=== PATIENT | male | born 1980 | race Caucasian/White ===

== ENCOUNTER 2024-04-14 15:36 | Outpatient (CLI) | payer OTHER, SELFPAY ==
--- NOTE | ~2024-04-14 | XR_ITS ---
EXAM: XR ankle LT 2V, XR foot LT 2V DATE: 04/14/2024 16:04 HISTORY: M25.579 - Pain in unspecified ankle and joints of unspeci... . COMPARISON: None available. FINDINGS: Normal mineralization. No fracture or dislocation. No lytic or blastic lesion. Joint space s are maintained. No erosion or periosteal change. Soft tissues within normal limits. IMPRESSION: Normal left ankle and left foot radiograph findings. Reviewed, dictated and finalized at location K. IMPRESSION: Normal left ankle and left foot radiograph findings.
--- NOTE | ~2024-04-14 | XR_ITS ---
EXAM: XR ankle RT 2V, XR foot RT 2V DATE: 04/14/2024 16:03 HISTORY: M25.571 - Pain in right ankle and joints of right foot . COMPARISON: None available. FINDINGS: Normal mineralization. No fracture or dislocation. No lytic or blastic lesion. Mild degene rative change at the right first interphalangeal joint. No erosion or periosteal change. Soft tissues within normal limits. IMPRESSION: No acute osseous finding in the right ankle or right foot. Reviewed, dictated and finalized at location K. IMPRESSION: No acute osseous finding in the right ankle or right foot.
--- NOTE | ~2024-04-14 | XR_ITS ---
EXAMINATION: XR chest 2V Exam Date/Time: 04/14/2024 15:50 CDT HISTORY: R06.02 - Shortness of breath Comparison: None. RESULT: Lines, tubes, and devices: None. Lungs and pleura: Clear. Cardiomediastinal silhouette: Normal. Other: No acute osseous or upper abdominal finding. IMPRESSION: No acute cardiopulmonary process. Reviewed, dictated and finalized at location K.
== END 2024-04-14 15:37 | disposition home or self-care (01) ==
LOC: ANHIMG 15:41
PROVIDERS: PCP Nurse Practitioner Family; Visit Provider Nurse Practitioner Family
DX: M25.571 Pain in right ankle and joints of right foot (principal); R06.02 Shortness of breath; M25.579 Pain in unspecified ankle and joints of unspecified foot; M79.671 Pain in right foot; M79.672 Pain in left foot
CPT/HCPCS: 71046; 73600; 73620

== ENCOUNTER 2024-05-29 09:19 | Outpatient (CLI) | payer OTHER, SELFPAY ==
--- NOTE | ~2024-05-29 | US_ITS ---
US abdomen limited INDICATION: Gallbladder polyps PROCEDURE: Realtime right upper abdominal ultrasound. COMPARISON: No prior studies for comparison. FINDINGS: The pancreas is normal without focal mass or pancreatic ductal dilation. Liver echotexture is normal without focal mass or intrahepatic biliary dilatation. There is normal directional flow i n the portal vein. There are multiple gallbladder polyps, largest measuring 11 mm. Common bile duct measures 4 mm. IMPRESSION: 1: Gallbladder polyps. Largest polyp measures approximately 11 mm. Reviewed, dictated and finalized at location B.
== END 2024-05-29 09:20 | disposition home or self-care (01) ==
PROVIDERS: PCP Nurse Practitioner Family; Visit Provider Nurse Practitioner Family
DX: K82.4 Cholesterolosis of gallbladder (principal)
CPT/HCPCS: 76705

== ENCOUNTER 2024-06-17 15:06 | Outpatient (CLI) | payer OTHER, SELFPAY ==
[2024-06-17 15:41] LABS: Alanine Aminotransferase 17 U/L (6-50); Albumin Level 4.5 g/dL (3.5-5.1); Alkaline Phosphatase 52 U/L (38-126); Amylase 80 U/L (30-110); Aspartate Amino Transferase 24 U/L (17-59); Bilirubin,Total 0.5 mg/dL (0.2-1.3); Lipase 122 U/L (23-300)
== END 2024-06-17 15:07 | disposition home or self-care (01) ==
LOC: ANHLAB 15:07
PROVIDERS: PCP Nurse Practitioner Family; Visit Provider Surgery
DX: K82.4 Cholesterolosis of gallbladder (principal)
CPT/HCPCS: 36415; 80076; 82150; 83690

== ENCOUNTER 2024-06-22 00:32 | Day surgery (SDC) | payer OTHER, SELFPAY ==
[2024-06-16 14:33] VITALS: BMI 27.1
--- NOTE | 2024-06-16 14:40 | PC.NURSE ---
Addendum entered by Shashi Rivera RN 06/17/24 13:02: No Semaglutide until after surgery. Original Note: Report to the Outpatient Waiting Room, entrance under the green pavilion located off [facility], at time _1100_ on date _[phone]_. Planned Procedure Time: _1pm_.? Time changes happen often and if your time is changed the preop area will call you the afternoon before. - You and your visitor will be asked to self-screen and do not enter if you have any COVID symptoms. Please call surgeon if you need to reschedule. - A mask is optional within the hospital at this time. Patients may have clear liquids (water, carbonated beverages, clear teas, apple juice) until 3 hours prior to surgery with a maximum of 20 ounces. - No food from midnight until time of surgery and no smoking Take only the following medications with a SIP of water on the morning of surgery: ___Bupropion and if needed Alprazolam____ DO NOT STOP ANY OF YOUR OTHER PRESCRIPTION MEDICATIONS PRIOR TO SURGERY EXCEPT THE FOLLOWING Medications to discontinue per physician __None___ Please no make-up, nail arabic, hairspray, perfume, deodorant, or body powder the day of surgery.? No jewelry (including any body piercings) or valuables the day of surgery, leave them at home.? Please take a shower or bath the night before, or the morning of, surgery with an antibacterial soap.? Wear comfortable, loose fitting clothing.? - Jewelry must be removed prior to entering the operating room.? Rings and piercings that are not removed may be cut off. - The hospital will not accept responsibility for valuables.? - Please leave all valuables, including medications, at home the day of surgery. If you are going home after surgery, a licensed driver guard must drive you home.? - NO public transportation without another adult if you receive anesthesia. - We recommend that an adult stay with you for 24 hours following discharge. - We also recommend that you do not drive, make important decision, drink alcoholic beverages, or take any drugs that were not prescribed by your health care provider for at least 24 hours after your discharge time. Follow any additional instructions given to you from your surgeon. Telephone instructions given to __Jacob_and asked if any additional questions and then verbalized understanding. Patient advised to call surgeon office or pre surgery nurse liaison [phone] if any additional questions.
[2024-06-22] VITALS (9 sets, daily range): BP systolic 126–148; BP diastolic 94–100; PULSE 79–90; RESP 14–18; TEMP 36.1–36.3; O2SAT 100
[2024-06-22] MEDS: ACETAMINOPHEN 500 MG TABLET 1000 MG PO (11:05)
[2024-06-22] MEDS: LACTATED RINGERS 1,000 ML 30 ML IV CONT ×2 (11:10→15:47)
[2024-06-22] MEDS: KETOROLAC 15 MG/ML VIAL (*BKC) IV PUSH (11:15)
--- NOTE | 2024-06-22 11:53 | SUR.PREOP ---
1145 - pt aware of delay in procedure per Lorraine Townsend PACU visual presentation manager
--- NOTE | 2024-06-22 12:41 | WPDANESEPPF ---
Anes - Initial Pre Proc Eval Procedure: Operation Date: 06/22/24 13:00 Proposed Procedures p Laparoscopic Cholecystectomy - Nilda Dempsey MD Date/Time: 06/22/24 12:41 Surgeon: Nilda Dempsey MD Pre Op Diagnosis: gall bladder polyp Patient Data Age: 44 Gender: M Height: 1.85 m Weight: 94.8 kg Last Vital Signs Temp 36.1 C L 06/22/24 10:45 Pulse 85 06/22/24 10:45 Resp 18 06/22/24 10:45 BP 126/96 H 06/22/24 10:45 Pulse Ox 100 06/22/24 10:45 O2 Del Method Room Air 06/22/24 10:45 Allergies Allergy/AdvReac Type Severity Reaction Status Date / Time propranolol Allergy Severe Other Verified 06/22/24 10:53 Home Medications Medication Instructions Recorded Confirmed Type alprazolam 1 mg tablet 1 mg PO TID PRN anxiety #90 tabs 08/22/23 06/22/24 Rx bupropion HCl 150 mg 24 hr tablet, 150 mg PO QAM #90 tabs 02/25/24 06/22/24 Rx extended release sildenafil 50 mg tablet (Viagra) 50 mg PO .3x/week PRN sexual 02/25/24 06/22/24 Rx activity #12 tabs dicyclomine 10 mg capsule 10 mg PO TID PRN abdominal pain 05/18/24 06/22/24 Rx #90 caps pantoprazole 40 mg tablet,delayed 40 mg PO QAM #90 tabs 05/19/24 06/22/24 Rx release (Protonix) rifaximin 550 mg tablet (Xifaxan) 550 mg PO TID #42 tabs 05/26/24 06/22/24 Rx semaglutide 1 mg/dose (4 mg/3 mL) 1 mg subcut WEEKLY 06/09/24 06/22/24 History subcutaneous pen injector Patient hx anesthesia problems: none Family hx anesthesia problems: none Results Review: All pre-operative results and documents have been reviewed as part of the pre-operative evaluation. [facility]LY [facility] Past Medical History Medical History Anxiety BPH (benign prostatic hyperplasia) Depression Elevated liver enzymes GERD (gastroesophageal reflux disease) Headache History of IBS Low testosterone Neuropathy Panic attack Prostatitis Sleep apnea STD exposure URI (upper respiratory infection) Viral gastroenteritis Surgical History Surgical History H/O rhinoplasty H/O vasectomy Status post cystoscopy with ureteral stent placement 10/12/2021 Family History Family History Father Alcoholism Mother Depression Grandparent Kidney malignancy Cerebrovascular accident Liver cancer Hypertension Heart disease Social History Social History Smoking packs per day: 1 Smoking cigarettes per day: 20.0 Years smoked: 15 Smoking pack-years: 15.00 Smoking status: Former smoker Smoking end date: 06/16/23 Alcohol intake: never Substance use: never Substance use type: does not use Do You Feel Safe in your Home?: Yes Lack of Transportation: No Lack of Food: Never True Current Housing: I Have Housing Concerned About Future Housing: No Difficulty Paying Gas/Electric Bills: No Difficulty Paying for Meds: No Currently Unemployed: No Education: Don't Know Difficulty w/ Childcare or Family Care: No Living arrangements: with family Spiritual care concerns: No Anes - Eval Final PreProcedure Day of Procedure 06/22/24 12:41 Patient weight: overweight Heart: regular rate and rhythm Lungs: clear to auscultation Airway: Mallampati scale class II Neurological: alert and oriented Last oral intake: >/= 8 hours ASA classification: II Emergent: no Anesthetic plan: proceed Anesthesia type and monitoring: general ETT and standard monitoring Results Review: All pre-operative results and documents have been reviewed as part of the pre-operative evaluation. Informed Consent: The patient's anesthetic plan and its attendant risks and benefits were discussed with the patient/family/POA. Questions were solicited and answers provided to the satisfaction of the patient/family/POA.
--- NOTE | 2024-06-22 13:23 | WPDHPUPDATE1 ---
History and Physical Update Update Date/Time: 06/22/24 13:23 History and Physical has been reviewed, including an updated exam of the patient. There are NO changes in the patient's condition. Risks, benefits, and alternatives have been discussed and questions answered. Patient agrees to proceed with procedure.
[2024-06-22] MEDS: BUPIVACAINE/EPINEPHRINE 0.5% 50 ML VIAL 30 ML INFILTRATE (14:50)
[2024-06-22] MEDS: ceFAZolin 2 GM/D5W 50 ML 2 GM/50 ML BAG IVPB (14:50)
--- NOTE | 2024-06-22 15:38 | W.PM.PROC2 ---
Procedure Note - Detailed Date of Procedure 06/22/24 Pre-op Diagnosis gallbladder polyps Post-op Diagnosis Same Procedure Performed Laparoscopic cholecystectomy Surgeon Nilda Dempsey MD Anesthesia General Indications 44-year-old male presenting to the office recent imaging was significant for gallbladder polyps. The patient does also endorse postprandial upper abdominal pain, bloating. Findings Moderate cholecystitis Description of Procedure The patient was taken to the operating room placed in the supine position. After adequate induction of general anesthesia, the patient was prepped and draped in normal sterile fashion. A time-out was then performed to verify the patient's identity as well as the procedure being performed. I then made a 5 mm incision in the infraumbilical region. Through this, a Veress needle was placed into the peritoneal cavity and CO2 gas was then insufflated. After adequate pneumoperitoneum was achieved, the Veress needle was removed and a 5 mm optiview trocar was placed through this incision under direct visualization. I then placed the laparoscope through this trocar site and under direct visualization placed a further 12 mm subxiphoid port as well as 2 additional 5 mm ports in the right upper abdomen. The gallbladder was then identified and was noted to be moderately inflamed and distended. I was able to place a grasper at the dome of the gallbladder and this was retracted anterior and cephalad up over the liver. A 2nd retractor was then placed at the infundibulum and retracted laterally, this allowed visualization of the triangle of Calot. I then was able to visualize the cystic duct in its entirety from its proximal insertion into the gallbladder, to its distal junction with the common hepatic/common bile duct junction. At this point, I carefully skeletonized the proximal cystic duct with the [place] dissector. I then clipped and transected the proximal cystic duct. Next I visualized the cystic artery. Again the artery was skeletonized, clipped, and transected. I then used the Bovie cautery to take down the peritoneal attachments of the gallbladder off the liver bed. This was somewhat difficult given the gallbladder was somewhat intrahepatic. Once the gallbladder specimen was completely detached, an endo-pouch was placed through the 12 mm port site. I then placed the gallbladder specimen into the Endo pouch and removed the endo-pouch from the 12 mm port site. The specimen will now be sent to pathology for further review. I then copiously irrigated the right upper quadrant. Some mild oozing was noted in the liver bed and this was controlled with the bovie cautery. Hemostasis was noted in the liver bed, the clips were noted to be in good position on both the cystic duct stump and the cystic artery stump. No other pathology was noted in the right upper quadrant. I then moved the laparoscope to the subxiphoid port. No iatrogenic injury or other pathology was noted in the lower abdomen. I then closed the 12 mm trocar site under direct visualization using the Faustino cone and 0 Vicryl suture. At this point, the abdomen was desufflated and all ports removed. All port sites were then closed with 4.O Monocryl subcuticular sutures. Dermabond was placed on each incision. The patient tolerated the procedure well, was extubated in the operating room postoperative and will be transferred to the recovery room in stable condition Estimated Blood Loss 10 Drains No Packing No Pathology Yes Complications No immediate complications Condition Stable Disposition PACU [facility] Billing Surgery - Charge Forward: Surgery Billing
[2024-06-22] MEDS: fentaNYL CITRATE INJ (*CRX) 100 MCG/2 ML VIAL 25 MCG IV PUSH ×4 (15:47→16:03)
[2024-06-22] MEDS: oxyCODONE HCL (*CRX) 5 MG TAB IR PO (17:28)
== END 2024-06-22 17:54 | disposition home or self-care (01) ==
PROVIDERS: PCP Nurse Practitioner Family; Visit Provider Surgery
PROC: 0FT44ZZ Resection of Gallbladder, Percutaneous Endoscopic Approach (ICD-10-PCS; CPT 47562; principal; 2024-06-22 13:00)
DX: K81.1 Chronic cholecystitis (principal); K21.9 Gastro-esophageal reflux disease without esophagitis; K58.9 Irritable bowel syndrome, unspecified; F41.9 Anxiety disorder, unspecified; N40.0 Benign prostatic hyperplasia without lower urinary tract symptoms; F32.A Depression, unspecified; F41.0 Panic disorder [episodic paroxysmal anxiety]; G47.30 Sleep apnea, unspecified; Z79.85 Long-term (current) use of injectable non-insulin antidiabetic drugs; Z98.890 Other specified postprocedural states; Z96.0 Presence of urogenital implants; Z87.891 Personal history of nicotine dependence; Z80.51 Family history of malignant neoplasm of kidney; Z80.0 Family history of malignant neoplasm of digestive organs; Z82.49 Family history of ischemic heart disease and other diseases of the circulatory system
CPT/HCPCS: 47562; 88304; A9270; J0690; J1100; J1885; J2250; J2405; J2704; J3010; J7120

== ENCOUNTER 2025-04-26 01:51 | Day surgery (SDC) | payer OTHER, SELFPAY ==
--- OUTSIDE RECORDS SUMMARY | 2024-07-09 04:03 | XMS_ITS | Continuity of Care Document ---
Author Organization [email or web address] Address [address] [place] [address] Phone Care Team Providers Care Ux Manager Name Role Phone Jeanette Gandhi DO Unavailable Unavailable Medications Medication Instructions Dosage Effective Dates (start - stop) Status Comments doxycycline hyclate 100 mg tablet take 1 tablet by oral route every 12 hours - Active naproxen 500 mg tablet take 1 tablet by oral route 2 times every day with food 500 MG - Active Procedures Procedure Date OFFICE [id number] Advance Directives Directive Yes / No Effective Date File Name No Information Encounters Encounter Description Practice Location Reason(s) For Visit Diagnoses Date Provider Providers Copied on Encounter [facility], [address], [place], [place], [id number], [place] tel:[phone] [facility] [place] No Information Hiram Reid. [address], [place], [id number], [place]. tel:[phone] OFFICE [id number] JOSE [facility], [address], [place], [place], [address], [place] tel:[phone] [facility] testicle pain (chief complaint) Pain in both testiclesLeft testicular pain Nohemi Raygoza. [address], [facility] [address], [place], [address], [place]. tel:[phone] Referring Provider: Colton Ignacio Dr [facility] [address], [place], [address]. tel:[phone] Family History Family Member Type Diagnosis Age At Onset No Information Payers Payer name Insurance type Covered republican ID Authoriza tion(s) No Information Social History Type Description Quantity Date Captured Comments Alcohol Use Details Unknown Caffeine Use Details Unknown Tobacco Use Status Smoking Status No Information Sex Male Sexual Orientation Straight or heterosexual Gender Identity Male Chief Complaint And Reason For Visit No Information Reason For Referral Reason For Referral No Information History Of Present Illness Encounter Date Complaint History Of Prese nt Illness testicle pain testicle pain (comments) patient presents for a second opinion on persisted testicular pain. Patient with vasectomy one year ago. The patient reports approximate 10 days after the vasectomy he was treated for a infection. He completed three rounds of antibiotics. The patient does report prior epididymitis prior to the vasectomy. He now complains of bilateral testicular pain occurring most days. He also has pain radiating down his leg. He rates the plaintiff six or 7/10. The patient's pain is been worsens June 2021. No voiding symptoms, tobacco use, family history of stone disease. The patient has been treated with NSAIDs. Previous urology records reviewed. Functional Status Date Functional Assessmen t No Information Instructions Date Instruction Additional Infor becki persistent testicula r pain bilaterally following a vasectomy. This is a well-known complication of vasectomy. Difficult to improve upon. I recommend NSAIDs when symptomatic. We discussed referral to peripheral nerve surgeon and injection therapy. I recommend referral to Dr. Andre Lang if symptoms worsen. We will give doxycycline and naproxen. Related to Pain in both testicles Assessments Type Assessment Date No Information Patient Care Teams Name Effective Dates (start - stop) Status Members No Information
[2025-04-12 15:19] VITALS: BMI 26.4
--- OUTSIDE RECORDS SUMMARY | 2025-04-26 01:54 | XMS_ITS | Clinical Summary ---
Author Organization [facility] Address [address] [place] [address] Care Team Providers Care Safety Technician Name Role Phone Bao Pierson MD Primary Care Provider [phone] Allergies Active Allergy Reactions Criticality Noted Date Comments Propranolol Other (See comments) Low 08/02/2021 alopecia Medications sildenafiL (VIAGRA) 50 mg tablet 1 Active SUMAtriptan (IMITREX) 50 mg tablet Take 1 tablet (50 mg total) by mouth 2 (two) times a day as needed 1 Active dicyclomine (BENTYL) 20 mg tablet Take 1 tablet (20 mg total) by mouth 4 (four) times a day as needed (abdominal cramping) 120 tablet 5 2 Active Xifaxan 550 mg tablet 5 Active testosterone enanthate 200 mg/mL injection Inject into the muscle as instructed every 7 days Active semaglutide (OZEMPIC) 0.25 mg or 0.5 mg (2 mg/3 mL) pen injector injection Inject under the skin every 7 days Active fluticasone propionate (FLONASE) 50 mcg/actuation nasal spray Administer 1 spray into each nostril daily 3 each 1 5 Active valACYclovir (VALTREX) 1 gram tablet Take 1 tablet (1,000 mg total) by mouth daily 30 tablet 5 Active buPROPion (WELLBUTRIN) 100 mg tablet Take 1 tablet (100 mg total) by mouth daily Active vitamin K2 40 mcg tablet Take 300 mcg by mouth Active cholecalciferol (VITAMIN D-3) 97333 unit tablet Take 1 tablet (10,000 Units total) by mouth daily Active omega 3-xdg-rwv-fish oil 1,200 (144-216) mg capsule Take 1 capsule by mouth daily Active digestive enzymes capsule Take by mouth One cap TID Active Active Problems Problem Noted Date Diagnosed Date Anxiety 08/28/2024 Assessment & Plan (08/28/2024 10:03 AM CLINICAL AUDIOLOGIST): Patient with history of chronic anxiety. He is on Wellbutrin. He did not notice improvement with the medication. He is on Wellbutrin for about 2 years. Will stop Wellbutrin and start him on Lexapro 5 mg daily. Routine general medical exam ination at a health care facility 08/28/2024 Assessment & Plan (08/28/2024 10:05 AM CLINICAL AUDIOLOGIST): Patient uses seatbelt. He exercises on regular basis. He does not take flu vaccine. Blood work was ordered. Patient quit smoking years ago. He drinks alcohol on social basis. Oral herpes 08/28/2024 Assessment & Plan (08/28/2024 10:06 AM CLINICAL AUDIOLOGIST): Patient was started on Valtrex 1 g t.i.d. for 5 days Hypogonadism in male 08/28/2024 Assessment & Plan (08/28/2024 10:06 AM CLINICAL AUDIOLOGIST): Patient is maintained on testosterone and Ozempic and managed for that by [facility] Non-seasonal allergic rhinitis due to pollen Assessment & Plan (08/28/2024 10:09 AM CLINICAL AUDIOLOGIST): Advised to use Flonase on a daily basis Erosive esophagitis- history of... 08/15/2021 Hiatal hernia 08/15/2021 Kidney stones 08/15/2021 Gastroesophageal reflux disease without esophagi tis 08/08/2021 Assessment & Plan (08/28/2024 10:03 AM CLINICAL AUDIOLOGIST): Currently asymptomatic. He is on pantoprazole. He is followed by rn forensic History of gastritis 08/08/2021 Tubular adenoma of colon 08/08/2021 Duodenitis 08/08/2021 Irritable bowel syndrome with diarrhea Assessment & Plan (08/28/2024 10:04 AM CLINICAL AUDIOLOGIST): Patient is maintained on Xifaxan and his symptoms under control Recurrent upper respiratory infection (URI) 11/2021 Left testicular pain 02/03/2021 Pain in both testicles 02/03/2021 Syncope 02/03/2021 Chronic nonintractable headache 11/22/2020 Chronic sinusitis 11/22/2020 ERIC (obstructive sleep apnea) 05/12/2018 Assessment & Plan (08/28/2024 10:04 AM CLINICAL AUDIOLOGIST): Patient uses CPAP machine Excessive daytime sleepiness 04/02/2018 Sleep disorder 04/02/2018 Snoring 04/02/2018 Immunizations Immunization Administration Dates Next Due Anthrax 01/02/2011, 7,11/23/2005,02/07,06/22/2003,09/25/2002,09/09/2002 ,08/26/2002 H1N1 Inj 08/19/2009 Hep A, Adult 06/12/2001,07/19/2000 Hep B Vaccine 11/13/2001,06/17/2001,05/16/2001 IPV 07/19/2000 Influenza LAIV (Nasal) 05/27/2014,2009,05/13/2009,05/07,06/12/2007,08/24/2004 Influenza, Quadrivalent, Spl it, Intramuscular 06/08/2016 Influenza, Quadrivalent, Spl it, Preservative Free, Intramuscular 07/27/2019,06/02/2018,01/10/2018,08/12 Influenza, Split 07/19/2006,06/26/2005 Influenza, Trivalent, Cell Culture-based MDCK, Preservative Free, Antibiotic Free, Intramuscular 06/13/2020 Influenza, Trivalent, IM (MDV) 07/20/2013,2010 Influenza, Trivalent, Preser vative Free, Intramuscular 12/09/2012 Influenza, Unspecified 07/25/2018 Influenza, Whole 06/22/2003,06/17/2001, 0 Meningococcal Polysaccharide (Menomune) 07/19/2000 PPD TEST 09/09/2002, 3,08/15/2001,07/19 Smallpox 11/23/2005 Td, adsorbed 10/09/2001 Tdap 02/17/2024,03/18/2012 Typhoid Inactivated 01/02/2011, 8,11/23/2005,02/07,08/15/2001 Yellow Fever 03/19/2002 Surgical History Surgery Date Site/Laterality Comments SEPTOPLASTY CHOLECYSTECTOMY 06/23/2024 GALLBLADDER SURGERY 08/05/2023 - 08/04/2024 Medical History Medical History Date Comments Allergic rhinitis Hypertension GERD (gastroesophageal reflux disease) IBS (irritable bowel syndrome) Colitis Social History Tobacco Use Types Packs/Day Years Used Date Smoking Tobacco: Former Cigarettes Q uit: 2020 Smokeless Tobacco: Never AUDIT-C Answer Date Recorded Q1: How often do you have a drink containing alcohol? Never 08/28/2024 Q2: How many drinks containi ng alcohol do you have on a typical day when you are drinking? Patient does not drink Q3: How often do you have si x or more drinks on one occasion? Never 08/28/2024 PHQ-2 Answer Date Recorded PHQ-2 Total Score (If total score is 3 or more points, staff should administer the PHQ-9) 0 08/28/2024 Sex and Gender Information Value Date Recorded Sex Assigned at Not on file Legal Sex Male 10:03 AM CDT Gender Identity Not on file Sexual Orientation Not on file Obstetrics History Last Filed Vital Signs Vital Sign Reading Time Taken Comments Blood Pressure 116/82 12/14/2024 9:27 AM CDT Pulse 92 12/14/2024 9:27 AM CDT Temperature 36.7 C (98 F) 08/28/2024 8:26 AM CLINICAL AUDIOLOGIST Respiratory Rate 15 12/14/2024 9:27 AM CDT Oxygen Saturation 98% 08/28/2024 8:26 AM CLINICAL AUDIOLOGIST Inhaled Oxygen Concentration - - Weight 94.8 kg (209 lb) 12/14/2024 9:27 AM CDT Height 185.4 cm (6' 1) 12/14/2024 9:27 AM CDT Body Mass Index 27.57 12/14/2024 9:27 AM CDT Plan of Treatment Health Maintenance Due Date Last Done Comments Hepatitis C Screening 1980 HPV Vaccines (1 - 3-dose SCDM series) 2007 Varicella Vaccines (1 of 2 - 13+ 2-dose series) 06/24/2014 Covid-19 Vaccine (3 - 2024- season) 2025 05/11/2021, 04/17/2021 Influenza Vaccine (#1) 2025 , 07/27/2019, 07/25/2018, Additional history exists Depression Screening 08/28/2025 08/28/2024 Regular Well Visit/Exam 18-64 08/28/2025 08/28/2024 DTaP/Tdap/Td Vaccine (3 - Td or Tdap) 02/16/2034 02/17/2024, 03/18/2012, 10/09/2001 Hepatitis B Screening Completed 11/13/2001 , 06/17/2001, 05/16/2001 Pneumococcal vaccine <65 Aged Out No longer eligible based on patient's age to complete this topic Insurance [employer] CLAIMS [employer] [facility] CLAIMS Care Teams Safety Technician Relationship Specialty Start Date End Date Bao Pierson MD [address] [place] [address] PCP - General Internal Medicine 08/28/24
--- OUTSIDE RECORDS SUMMARY | 2025-04-26 01:54 | XMS_ITS | Clinical Summary ---
Author Organization [facility] Address [facility] [place] [address] Care Team Providers Care Washing Machine Installer Name Role Phone Elma Jurado [facility] Primary Care Provider + Allergies Active Allergy Reactions Criticality Noted Date Comments Propranolol Other (see comment) 10/05/2021 alopecia Medications busPIRone 10 MG tablet Take 5 mg by mouth 2 (two) times daily. 01/27/2021 Active fluticasone propionate 50 MCG/ACT nasal spray 1 spray by Each Nostril route daily. 09/28/2020 Active SUMAtriptan 50 MG tablet Take 50 mg by mouth 2 (two) times daily as needed for Migraine. 01/27/2021 Active sucralfate 1 G tablet Take 1 g by mouth 2 (two) times daily as needed (stomach). 05/26/2021 Active ALPRAZolam (XANAX) 1 MG tablet Take 1 mg by mouth 3 (three) times daily as needed. FOR ANXIETY 07/17/2022 Active PARoxetine (PAXIL) 20 MG tablet Take 20 mg by mouth daily. 07/05/2022 Active Active Problems Problem Noted Date Diagnosed Date Syncope 02/03/2021 Left testicular pain 02/03/2021 Pain in both testicles 02/03/2021 Chronic nonintractable headache 11/22/2020 Chronic sinusitis 11/22/2020 ERIC (obstructive sleep apnea) 05/12/2018 Excessive daytime sleepiness 04/02/2018 Sleep disorder 04/02/2018 Snoring 04/02/2018 Encounters Date Type Department Care Team Description 03/23/2025 11:05 AM CDT - 03/23/2025 11:59 PM CDT Hospital Encounter [facility] [place] [address] Darwin Vogel MD Discharge Disposition: Home or Self Care (Routine Discharge) 03/23/2025 Travel from Last 3 Months Immunizations Immunization Administration Dates Next Due Influenza Adult (Generic) 07/25/2018 Family History Medical History Relation Comments No Known Problems Brother Alcohol Abuse Father NA No Known Problems Mother No Known Problems Sister No Known Problems Son 1 No Known Problems Son 2 Relation Status Comments Brother Alive Father Alive Mother Alive Sister Alive Son 1 Alive Son 2 Alive Social History Tobacco Use Types Packs/Day Years Used Date Smoking Tobacco: Former Cigarettes 1 15 0 08/05/2005 - 08/05/2020 Smokeless Tobacco: Never Tobacco Cessation:Counseling Given: Yes Alcohol Use Standard Drinks/Week Comments Not Currently 0 (1 standard drink = 0.6 oz pur e alcohol) I dont drink. Sex and Gender Information Value Date Recorded Sex Assigned at Not on file Legal Sex Male 8:39 AM CDT Gender Identity Not on file Sexual Orientation Not on file Last Filed Vital Signs Vital Sign Reading Time Taken Comments Blood Pressure 136/82 07/26/2022 7:56 AM EXPLOSIVE ORDNANCE MANAGER Pulse 95 07/26/2022 7:56 AM EXPLOSIVE ORDNANCE MANAGER Temperature 37.1 C (98.7 F) 07/26/2022 7:56 AM EXPLOSIVE ORDNANCE MANAGER Respiratory Rate 12 07/26/2022 7:56 AM EXPLOSIVE ORDNANCE MANAGER Oxygen Saturation 98% 07/26/2022 7:56 AM EXPLOSIVE ORDNANCE MANAGER Inhaled Oxygen Concentration - - Weight 100.2 kg (221 lb) 07/26/2022 7:56 AM EXPLOSIVE ORDNANCE MANAGER Height 185.4 cm (6' 1) 07/26/2022 7:56 AM EXPLOSIVE ORDNANCE MANAGER Body Mass Index 29.16 07/26/2022 7:56 AM EXPLOSIVE ORDNANCE MANAGER Plan of Treatment Health Maintenance Due Date Last Done Comments Annual Physical 1983 Hepatitis C 1998 HPV Vaccines (1 - 3-dose SCD M series) 2007 PHQ-2 (Physician [place]) 08/05/2024 COVID-19 Vaccine ( - 2024-2 6 season) 2025 05/11/2021, 04/17/2021 DTaP, Tdap and Td Vaccines ( 3 - Td or Tdap) 02/24/2034 02/25/2024, 03/18/2012, 10/09/2001 Meningococcal Vaccine Aged Out 07/19/2000 No rashmi floyd eligible based on patient's age to complete this topic Hepatitis B Vaccines Completed 11/13/2001, 06/17/2001, 05/16/2001 Meningococcal B Vaccine Aged Out No l onger eligible based on patient's age to complete this topic Pneumococcal Vaccine: Pediatrics (0 to 5 Years) and At-Risk Patients (6 to 49 Years) Aged Out No longer eligible b ased on patient's age to complete this topic RSV Immunizations Under 20 Months Aged Out No longer eligible b ased on patient's age to complete this topic Medical Devices Implanted Type Area Wire Rope Fabrication Supervisor Device Identifier Shelf Expiration Date Model / Serial / Lot Stent Uret 6fr 26cm Pigtl Crv Taper Tip Bldr Mrk - [id number] Implanted:Qty : 1 on 10/23/2021 by Dalton Fink MD at [facility] Stent Left: Ureter [employer] [id number] 07/23/2024 [id number] / / [id number] Description:LEFT URETER STEN T Explanted Type Area Wire Rope Fabrication Supervisor Device Identifier Shelf Expiration Date Model / Serial / Lot Stent Ureteral [place] [employer] Contour 6fr X 26cm - [id number] Implanted:Qty: 1 on 10/12/2021 by Aakash Pittman MD at [facility] Explanted:Qty: 1 on 10/23/2021 by Dalton Fink MD at [facility] Stent Left: Ureter [employer] 07/13/2024 [id number] / / [id number] Procedures Procedure Name Priority Date/Time Associated Diagnosis Comments US RETROPERITONEAL COMP Routine 03/23/20 11:41 AM CDT Calcium kidney stone from Last 3 Months Results * US RETROPERITONEAL COMP (03/23/2025 11:41 AM CDT) Anatomical Region Laterality Modality Abdomen Ultrasound 03/23/2025 3:08 PM CDT Impressions 03/23/2025 4:30 PM CDT IMPRESSION: 1. Multiple small nonobstructing right renal calculi, as above. 2. Otherwise normal sonographic appearance of the kidneys and urinary bladder. Preliminary: Eulogio Kurtz DO03/23/2025 3:13 PM The attending radiologist has reviewed the image(s) and agrees with the content of this report. Ordered By: DARWIN VOGEL Interpreted By: Eulogio Kurtz DO, 03/23/2025 3:08 PM Narrative 03/23/2025 4:30 PM CDT [address] [address] Examination: US RETROPERITONEAL COMP Exam time: 03/23/2025 11:07 AM Clinical history: Follow-up kidney stone. Patient reports no problems since last year. Comparison: Renal ultrasound 03/02/2024. Technique: Sonographic evaluation of the retroperitoneum, including both kidneys and the urinary bladder, was performed utilizing grayscale and color Doppler technique. Findings: RIGHT KIDNEY: The right kidney measures 12.4 x 6.8 x 5.9 cm and demonstrates normal echogenicity and color Doppler flow. Parenchymal thickness is preserved. There are a few nonobstructing shadowing echogenic calculi within the right kidney. There is a 0.6 x 0.4 x 0.6 cm calculus at the mid to inferior pole the right kidney. There is an adjacent 0.5 x 0.4 x 0.6 cm echogenic focus likely also representing a nonobstructing calculus. Additional 0.8 x 0.4 x 0.5 cm shadowing calculus at the inferior pole the right kidney. Additional shadowing calculus at the midpole of the right kidney measuring 0.5 x 0.5 x 0.6 cm. No cysts, mass, or hydronephrosis. LEFT KIDNEY: The left kidney measures 12.1x 6.1x 5.5cm and demonstrates normal echogenicity and color Doppler flow. Parenchymal thickness is preserved. There is no cyst, mass, hydronephrosis, or echogenic calculus. URINARY BLADDER: There is no urinary bladder wall thickening. Bilateral ureteral jets are visualized. Procedure Note Quique Baptiste MD - 03/23/2025 [facility] [address] [place], [place] [address] Examination: US RETROPERITONEAL COMP Exam time: 03/23/2025 11:07 AM Clinical history: Follow-up kidney stone. Patient reports no problemssince last year. Comparison: Renal ultrasound 03/02/2024. Technique: Sonographic evaluation of the retroperitoneum, including bothkidneys and the urinary bladder, was performed utilizing grayscale andcolor Doppler technique. Findings: RIGHT KIDNEY: The right kidney measures 12.4 x 6.8 x 5.9 cm and demonstrates normalechogenicity and color Doppler flow. Parenchymal thickness is preserved.There are a few nonobstructing shadowing echogenic calculi within theright kidney. There is a 0.6 x 0.4 x 0.6 cm calculus at the mid toinferior pole the right kidney. There is an adjacent 0.5 x 0.4 x 0.6 cmechogenic focus likely also representing a nonobstructing calculus.Additional 0.8 x 0.4 x 0.5 cm shadowing calculus at the inferior pole theright kidney. Additional shadowing calculus at the midpole of the rightkidney measuring 0.5 x 0.5 x 0.6 cm. No cysts, mass, or hydronephrosis. LEFT KIDNEY: The left kidney measures 12.1x 6.1x 5.5cm and demonstrates normalechogenicity and color Doppler flow. Parenchymal thickness is preserved.There is no cyst, mass, hydronephrosis, or echogenic calculus. URINARY BLADDER: There is no urinary bladder wall thickening. Bilateral ureteral jets arevisualized. IMPRESSION: 1. Multiple small nonobstructing right renal calculi, as above. 2. Otherwise normal sonographic appearance of the kidneys and urinarybladder. Preliminary: Eulogio Kurtz, DO03/23/2025 3:13 PM The attending radiologist has reviewed the image(s) and agrees with thecontent of this report. Ordered By: DARWIN VOGEL Interpreted By: Eulogio Kurtz DO, 03/23/2025 3:08 PM us Darwin Vogel MD ULTRASOUND Final Result from Last 3 Months Insurance Advance Directives * Full Code (Latest Code Status on File) Date Activated Date Inactivated Comments 02/03/2021 11:05 PM 02/04/2021 3:06 AM Care Teams Washing Machine Installer Relationship Specialty Start Date End Date Elma Jurado, HIMS CLERK- [facility] [place] [address] PCP - General Nurse Practitioner Family 03/23/25
[2025-04-26 11:10] VITALS: BP 130/89; PULSE 90; RESP 18; TEMP 36.9; O2SAT 99
[2025-04-26] MEDS: LACTATED RINGERS 1,000 ML 150 ML IV CONT (11:12)
--- NOTE | 2025-04-26 11:34 | P.PNAN_ITS ---
Anes - Initial Pre Proc Eval Procedure: Operation Date: 04/26/25 12:30 Proposed Procedures p EGD & Diagnostic Colonoscopy - Davi Braun MD Date/Time: 04/26/25 11:34 Surgeon: Davi Braun MD Pre Op Diagnosis: Gastro-esophageal reflux disease with esophagitis, Patient Data Age: 44 Gender: M Height: 1.85 m Weight: 89.6 kg Last Vital Signs Temp 98.4 F 04/26/25 11:10 Pulse 90 04/26/25 11:10 Resp 18 04/26/25 11:10 BP 130/89 04/26/25 11:10 Pulse Ox 99 04/26/25 11:10 O2 Del Method Room Air 04/26/25 11:10 Allergies Allergy/AdvReac Type Severity Reaction Status Date / Time propranolol Allergy Severe Other Verified 04/12/25 15:15 Home Medications ?Medication ?Instructions ?Recorded ?Confirmed ?Type alprazolam 1 mg tablet 1 mg PO TID PRN anxiety #90 tabs 08/22/23 04/26/25 Rx dicyclomine 10 mg capsule 10 mg PO TID PRN abdominal p ain 05/18/24 04/12/25 Rx #90 caps semaglutide 1 mg/dose (4 mg/3 mL) 1 mg subcut WEEKLY 1 08/09/23 04/26/25 History subcutaneous pen injector bupropion HCl 150 mg 24 hr tablet, 150 mg PO QAM #90 t abs 11/24/24 04/26/25 Rx extended release rifaximin 550 mg tablet (Xifaxan) 550 mg PO .daily #30 tabs 12/04/24 04/09/25 Rx pantoprazole 40 mg tablet,delayed 40 mg PO QAM #30 tab s 02/08/25 04/26/25 Rx release sumatriptan succinate 100 mg tablet See Rx Instruction s PO .COMPLEX 02/11/25 04/12/25 Rx #10 tabs meloxicam 15 mg tablet 15 mg PO DAILY #30 tabs 12/2704/09/25 Rx sildenafil 50 mg tablet (Viagra) 50 mg PO .3x/week PRN sexual 04/09/25 04/12/25 Rx activity #12 tabs testosterone 100 mg/mL 200 mg IM .biweekly 04/12/25 04/12/25 History intramuscular suspension Patient hx anesthesia problems: none Family hx anesthesia problems: none Results Review: All pre-operative results and documents have been reviewed as part of the pre- operative evaluation. [facility] Past Medical History Medical History Viral gastroenteritis URI (upper respiratory infection) Neuropathy BPH (benign prostatic hyperplasia) Low testosterone Elevated liver enzymes Prostatitis STD exposure Depression Panic attack Anxiety Sleep apnea History of IBS Headache GERD (gastroesophageal reflux disease) Surgical History Surgical History Hx laparoscopic cholecystectomy 06/22/24 Boogie Dempsey MD Status post cystoscopy with ureteral stent placement 10/12/2021 H/O rhinoplasty H/O vasectomy Family History Family History Father Alcoholism Mother Depression Grandparent Kidney malignancy Cerebrovascular accident Liver cancer Hypertension Heart disease Social History Social History Social History: 11/24/24 very confident with medical forms Smoking packs per day: 1 Smoking cigarettes per day: 20.0 Years smoked: 15 Smoking pack-years: 15.00 Smoking status: Former smoker Smoking end date: 06/16/23 Alcohol intake: never Substance use: never Substance use type: does not use Do You Feel Safe in your Home?: Yes Lack of Transportation: No Lack of Food: Never True Current Housing: I Have Housing Concerned About Future Housing: No Difficulty Paying Gas/Electric Bills: No Difficulty Paying for Meds: No Currently Unemployed: No Education: Associate Degree Difficulty w/ Childcare or Family Care: No Living arrangements: with family Spiritual care concerns: No Anes - Eval Final PreProcedure Day of Procedure 04/26/25 11:34 Patient weight: normal Lungs: normal air movement Airway: Mallampati scale class II Neurological: alert and oriented Last oral intake: >/= 8 hours ASA classification: II Emergent: no Anesthetic plan: proceed Anesthesia type and monitoring: general GIVS and standard monitoring Results Review: All pre-operative results and documents have been reviewed as part of the pre- operative evaluation. ERIC on CPAP, occ migranes, pt active w workouts/running, no cp or sob. Informed Consent: The patient's anesthetic plan and its attendant risks and benefits were discussed with the patient/family/POA. Questions were solicited and answers provided to the satisfaction of the patient/family/POA.
--- NOTE | 2025-04-26 12:15 | P.HP_ITS ---
History of Present Illness History of Present Illness Consent: Risks, benefits, and alternatives have been discussed and questions answered. Patient agrees to proceed with procedure. Chief complaint: Gastro-esophageal reflux disease with esophagitis, Narrative: Dalton Sanchez is a 44 year old male here with egd and colonoscopy, last time in 2020, had colon polyp, bx negative for celiac. History of ibs and gerd on ppi. Review of Systems Review of Systems: All systems reviewed & are unremarkable except as noted in HPI and below PMFSH Past Medical History Medical History Viral gastroenteritis URI (upper respiratory infection) Neuropathy BPH (benign prostatic hyperplasia) Low testosterone Elevated liver enzymes Prostatitis STD exposure Depression Panic attack Anxiety Sleep apnea History of IBS Headache GERD (gastroesophageal reflux disease) Surgical History Surgical History Hx laparoscopic cholecystectomy 06/22/24 Boogie Dempsey MD Status post cystoscopy with ureteral stent placement 10/12/2021 H/O rhinoplasty H/O vasectomy Family History Family History Father Alcoholism Mother Depression Grandparent Kidney malignancy Cerebrovascular accident Liver cancer Hypertension Heart disease Social History Social History Social History: 11/24/24 very confident with medical forms Smoking packs per day: 1 Smoking cigarettes per day: 20.0 Years smoked: 15 Smoking pack-years: 15.00 Smoking status: Former smoker Smoking end date: 06/16/23 Alcohol intake: never Substance use: never Substance use type: does not use Do You Feel Safe in your Home?: Yes Lack of Transportation: No Lack of Food: Never True Current Housing: I Have Housing Concerned About Future Housing: No Difficulty Paying Gas/Electric Bills: No Difficulty Paying for Meds: No Currently Unemployed: No Education: Associate Degree Difficulty w/ Childcare or Family Care: No Living arrangements: with family Spiritual care concerns: No Meds Home Medications and Allergies Home Medications ?Medication ?Instructions ?Recorded ?Confirmed ?Type alprazolam 1 mg tablet 1 mg PO TID PRN anxiety #90 tabs 08/22/23 04/26/25 Rx dicyclomine 10 mg capsule 10 mg PO TID PRN abdominal p ain 05/18/24 04/12/25 Rx #90 caps semaglutide 1 mg/dose (4 mg/3 mL) 1 mg subcut WEEKLY 1 08/09/23 04/26/25 History subcutaneous pen injector bupropion HCl 150 mg 24 hr tablet, 150 mg PO QAM #90 t abs 11/24/24 04/26/25 Rx extended release rifaximin 550 mg tablet (Xifaxan) 550 mg PO .daily #30 tabs 12/04/24 04/09/25 Rx pantoprazole 40 mg tablet,delayed 40 mg PO QAM #30 tab s 02/08/25 04/26/25 Rx release sumatriptan succinate 100 mg tablet See Rx Instruction s PO .COMPLEX 02/11/25 04/12/25 Rx #10 tabs meloxicam 15 mg tablet 15 mg PO DAILY #30 tabs 09/12/2704/09/25 Rx sildenafil 50 mg tablet (Viagra) 50 mg PO .3x/week PRN sexual 04/09/25 04/12/25 Rx activity #12 tabs testosterone 100 mg/mL 200 mg IM .biweekly 04/12/25 04/12/25 History intramuscular suspension Allergies Allergy/AdvReac Type Severity Reaction Status Date / Time propranolol Allergy Severe Other Verified 04/12/25 15:15 Vital Signs Vital Signs - 24 hr 04/26/25 11:10 Temperature 98.4 F Pulse Rate 90 Respiratory Rate 18 Blood Pressure 130/89 Pulse Oximetry 99 Oxygen Delivery Room Air Exam Const: General: comfortable and no acute distress HENMT: Face/Nose/Sinus: Normal nares present Eyes: General: appearance normal, both eyes and all related structures Neck: Neck: no JVD Resp: Auscultation: clear to auscultation bilaterally Cardio: Rate: regular rate Rhythm: regular rhythm GI: Inspection: non-distended GI Palp: Yes Soft to palpation Skin: General skin exam: normal color Neuro: Speech: normal speech Extrem: General: normal to inspection Psych: Mental Status: mental status grossly normal Assessment and Plan Assessment and plan (1) GERD (gastroesophageal reflux disease): Qualifiers: Esophagitis presence: with esophagitis Esophagitis bleeding: without hemorrhage Qualified Code(s): K21.00 - Gastro-esophageal reflux disease with esophagitis, without bleeding Code(s): K21.9 - Gastro-esophageal reflux disease without esophagitis Status: Acute Assessment and Plan: egd (2) Irritable bowel syndrome with diarrhea: Code(s): K58.0 - Irritable bowel syndrome with diarrhea Status: Acute Assessment and Plan: colonoscopy
--- NOTE | 2025-04-26 12:25 | SUR.OPER ---
EGD TIME 5329-1591, COLONOSCOPY TIME [id number]
--- NOTE | 2025-04-26 12:34 | S_PTH ---
PATIENT: Dalton Sanchez LOC: [facility]#:[id number] AGE/SX: 44/M ROOM: RE04/26/[address]: Davi Braun MD : 1980 BED: DIS: 04/26/2025 SPEC #: [id number] RECD: 04/26/25 13:14 STATUS: [facility] REQ #: [id number] KEHINDE: 04/26/25 12:[address]: Davi Braun DEPT: [facility] Surgical RECD BY: Jyoti Ortega ENTERED: 04/26/25 13:15 SP TYPE: Surgical OTHR DR: Elma Jurado, REMEDIOS Tissues: A - Gastric Biopsy B - Colon Biopsy Procedures: Hematoxylin and Eosin Stain Gross and Microscopic Level 4
[2025-04-26 12:36] VITALS: BP 119/78; PULSE 87; RESP 14; O2SAT 98
[2025-04-26 12:46] VITALS: BP 114/79; PULSE 82; RESP 13; O2SAT 98
[2025-04-26 12:56] VITALS: BP 127/77; PULSE 94; RESP 18; O2SAT 98
== END 2025-04-26 13:05 | disposition home or self-care (01) ==
PROVIDERS: PCP Nurse Practitioner Family; Referring Provider Nurse Practitioner Family; Visit Provider Internal Medicine Gastroenterology
PROC: 0DJ08ZZ Inspection of Upper Intestinal Tract, Via Natural or Artificial Opening Endoscopic (ICD-10-PCS; CPT 45378; principal; 2025-04-26 12:30)
DX: K58.0 Irritable bowel syndrome with diarrhea (principal); K57.30 Diverticulosis of large intestine without perforation or abscess without bleeding; K64.8 Other hemorrhoids; Z86.0100 Personal history of colon polyps, unspecified; K21.9 Gastro-esophageal reflux disease without esophagitis; Z87.891 Personal history of nicotine dependence
CPT/HCPCS: 45380; 43239; 88305; J2003; J2704; J7120